=== PATIENT | male | born 1955 | race Caucasian/White ===

== ENCOUNTER 2016-12-25 11:13 | Day surgery (SDC) | payer OTHER ==
[2016-12-05 12:15] VITALS: BMI 29.5
[2016-12-25] MEDS ORDERED: LIDOCAINE HCL 2% (20ML MULTI-DOSE VIAL) NR ONE (13:15)
[2016-12-25] MEDS ORDERED: MIDAZOLAM HCL 2 MG/2 ML SINGLE DOSE VIAL ONE (13:34)
[2016-12-25] MEDS ORDERED: PROPOFOL 20 ML ONE (13:34)
[2016-12-25] MEDS ORDERED: ceFAZolin SODIUM 1 GM VIAL ONE (14:01)
[2016-12-25] MEDS ORDERED: DEXAMETHASONE SOD PHOSPHATE 4 MG/1 ML VIAL ONE (14:01)
[2016-12-25] MEDS ORDERED: KETOROLAC TROMETHAMINE 30 MG/1 ML VIAL ONE (14:01)
[2016-12-25] MEDS ORDERED: ONDANSETRON 4 MG/2 ML VIAL ONE (14:01)
[2016-12-25] MEDS ORDERED: DESFLURANE GAS 240 ML BOTTLE IH ONE (14:04)
[2016-12-25] MEDS ORDERED: SEVOFLURANE 250 ML BTL ONE (14:04)
[2016-12-25] MEDS ORDERED: oxyCODONE HCL 5 MG TABLET PO PRN (14:33)
[2016-12-25] MEDS ORDERED: PROMETHAZINE HCL 25 MG/1 ML VIAL IVPUSH PRN (14:33)
[2016-12-25] MEDS ORDERED: ONDANSETRON 4 MG/2 ML VIAL IVPUSH PRN (14:33)
[2016-12-25] MEDS ORDERED: LACTATED RINGERS SOLUTION 1,000 ML IV SCH (14:45)
[2016-12-25 16:13] VITALS: BP 126/72; PULSE 82; TEMP 97.8
--- NOTE | 2016-12-28 07:29 | OP ---
DATE OF OPERATION: 12/25/2016 PREOPERATIVE DIAGNOSES: 1. Right carpal tunnel syndrome. 2. Right ring trigger finger. POSTOPERATIVE DIAGNOSIS: 1. Right carpal tunnel syndrome. 2. Right ring trigger finger. OPERATIVE PROCEDURE: 1. Right carpal tunnel release. 2. Right ring trigger finger release. SURGEON: Mic Jack MD ANESTHESIA: Local with sedation. COMPLICATIONS: None. ESTIMATED BLOOD LOSS: Minimal. INDICATIONS FOR PROCEDURE: The patient is an 61-year-old male with the above findings indicated for operative treatment. Risks, benefits, and alternatives were discussed with the patient at length. Proper informed consent was obtained. DESCRIPTION OF PROCEDURE: After proper identification of patient and correct operative site, the patient was brought to the operating room and placed supine on the operative table, prominences well padded. Sedation was given by the anesthesiologist. Local anesthesia was given with 2% lidocaine. Right upper extremity was prepped and draped in the usual sterile fashion. A well-padded tourniquet was placed with a sterile prep. Esmarch bandage used to exsanguinate the right upper extremity. Tourniquet was inflated to 250 mmHg. A longitudinal incision was made over the proximal aspect of the palm. Incision was taken sharply through the skin with sharp and blunt dissection in the subcutaneous tissues. Palmar fascia was divided longitudinally. The transverse carpal ligament was divided laterally along with the distal 4 cm of the antebrachial fascia under direct visualization with loupe magnification. This provided complete release of the median nerve at the wrist. The wound was repaired with a 5-0 nylon suture. A second incision was made over the ring finger A1 shelley. Incision was taken sharply through the skin with bluntly and sharply dissection of subcutaneous tissues. The A1 shelley was divided longitudinally. The patient was reversed from sedation, asked to flex and extend the finger, and no further triggering was noted. The wound was irrigated with saline and repaired with 5-0 nylon suture. Sterile dressings were applied. The patient was brought to the recovery room in stable condition. He tolerated the procedure well. Oli PRICE/[id number]
== END 2016-12-25 16:14 | disposition home or self-care (01) ==
LOC: FASU 11:13
PROVIDERS: ATTEND Orthopaedic Surgery Hand Surgery
PROC: 01N50ZZ Release Median Nerve, Open Approach (ICD-10-PCS; principal; 2016-12-25 14:07)
PROC: 0LN70ZZ Release Right Hand Tendon, Open Approach (ICD-10-PCS; 2016-12-25 14:07)
DX: G56.01 Carpal tunnel syndrome, right upper limb (principal); M65.341 Trigger finger, right ring finger
CPT/HCPCS: 94760